=== PATIENT | female | born 1970 | race African-American/Black ===

== ENCOUNTER 2019-03-10 21:46 | Emergency (ER) | payer SELFPAY ==
[~2019-03-10] VITALS: Ht 162.6 cm; Wt 86.0 kg
[2019-03-10] MEDS ORDERED: LOSA100T2 PO (22:35)
[2019-03-10] MEDS ORDERED: AMLO-511 PO (22:35)
[2019-03-10] MEDS ORDERED: PARO20TA24 PO (22:35)
[2019-03-10 22:38] VITALS: BP 136/80
== END 2019-03-10 23:09 | disposition home or self-care (01) ==
LOC: EMS 21:47
DX: R09.89 Other specified symptoms and signs involving the circulatory and respiratory systems (principal); I10 Essential (primary) hypertension; F32.9 Major depressive disorder, single episode, unspecified; Z02.89 Encounter for other administrative examinations; Z98.51 Tubal ligation status; Z88.8 Allergy status to other drugs, medicaments and biological substances

== ENCOUNTER 2023-09-30 06:54 | Emergency (ER) | payer MEDICAID ==
[~2023-09-30] VITALS: Ht 160 cm; Wt 86.0 kg
[~2023-09-30 06:54] MED LIST: AMLO-257 PO; LOSA-420 PO; PARO-38 PO
[2023-09-30] MEDS ORDERED: FOLI-130 PO (06:58)
[2023-09-30] MEDS ORDERED: THIA100T80 PO (06:58)
[2023-09-30] MEDS ORDERED: SULF500T60 PO (06:58)
[2023-09-30] MEDS ORDERED: CALC-789 PO (06:58)
[2023-09-30] MEDS ORDERED: LORA10TA7 PO (06:58)
[2023-09-30] MEDS ORDERED: MULT-662 PO (06:58)
[2023-09-30] MEDS ORDERED: ACETAMINOPHEN 500 MG TABLET PO ONE (07:15)
[2023-09-30] MEDS ORDERED: MAG HYDROX/ALUMINUM HYD/SIMETH 30 ML SUSPENSION UDCUP PO ONE (07:15)
[2023-09-30] MEDS ORDERED: SODIUM CHLORIDE 0.9% 1,000 ML IV ONE (07:15)
[2023-09-30] MEDS ORDERED: FAMOTIDINE 20 MG/2 ML VIAL IVP ONE (07:15)
[2023-09-30] MEDS ORDERED: IOHEXOL 350 MG/ML 100 ML VIAL ONE (07:19)
[2023-09-30] MEDS ORDERED: SODIUM CHLORIDE 0.9% 100 ML ONE (07:19)
[2023-09-30 07:22] LABS: COVID AG,FIA SOURCE NASAL SWAB
[2023-09-30 07:44] LABS: BASOPHILS % (AUTO) 0.5 % (0.0-2.0); EOSINOPHILS % (AUTO) 1.3 % (1.0-6.0); HEMATOCRIT 36.9 % (36-46); HEMOGLOBIN 12.6 g/dL (12.0-16.0); LYMPHOCYTES # (AUTO) 1.4 K/uL (1.0-4.8); LYMPHOCYTES % (AUTO) 23.5 % (22.0-44.0); MEAN CORPUSCULAR HEMOGLOBIN 33.7 pg (26.0-34.0); MEAN CORPUSCULAR VOLUME 99 fL (80-100); MONOCYTES # (AUTO) 0.4 K/uL (0.1-1.0); MONOCYTES % (AUTO) 7.4 % (2.0-9.0); NEUTROPHILS % (AUTO) 67.3 % (40.0-70.0); PLATELET COUNT (AUTO) 277 K/uL (150-450); RED BLOOD CELL COUNT(AUTO) 3.74 MIL/uL (4.00-5.20); RED CELL DISTRIBUTION WIDTH 15.8 % (11.5-14.5)
[2023-09-30 07:54] LABS: APPEARANCE,URINE HAZY (CLEAR); BILIRUBIN,URINE NEGATIVE (NEGATIVE); COLOR,URINE YELLOW (YELLOW); GLUCOSE, URINE (UA) NEGATIVE (NEGATIVE); KETONES,URINE NEGATIVE (NEGATIVE); LEUKOCYTE ESTERASE ,URINE LARGE (NEGATIVE); NITRATE,URINE NEGATIVE (NEGATIVE); OCCULT BLOOD,URINE TRACE (NEGATIVE); PH,URINE 6.5 (5.0-8.0); PROTEIN,URINE 30-70 mg/dL (NEGATIVE); SPECIFIC GRAVITIY, URINE 1.013 (1.003-1.030); UROBILINOGEN,URINE <=1.0 mg/dL (<=1.0)
[2023-09-30 07:54] LABS: ANION GAP 11 mmol/L (8-16); CALCIUM, TOTAL 9.6 mg/dL (8.8-10.5); CARBON DIOXIDE 25 mmol/L (22-29); CHLORIDE 98 mmol/L (98-107); CREATININE 0.77 mg/dL (0.60-1.30); GLOMERULAR FILTR. RATE CALC > 60 mL/min (>60); GLUCOSE,RANDOM 126 mg/dL (70-110); POTASSIUM 3.2 mmol/L (3.5-5.1); SODIUM SERUM 134 mmol/L (136-145); UREA NITROGEN, BLOOD 5 mg/dL (7-18)
[2023-09-30 07:58] LABS: SARS-COV2 (COVID) ANTIGEN,FIA Negative (Negative)
[2023-09-30 07:59] LABS: INFLUENZA TYPE A NEGATIVE FOR TYPE A (NEGATIVE); INFLUENZA TYPE B NEGATIVE FOR TYPE B (NEGATIVE)
[2023-09-30 07:59] LABS: ALANINE AMINOTRANSFERASE 35 U/L (12-78); ALBUMIN 3.9 g/dL (3.4-5.0); ALKALINE PHOSPHATASE 106 U/L (46-116); ASPARTATE AMINOTRANSFERASE 28 U/L (15-37); BILIRUBIN,TOTAL 0.7 mg/dL (0.1-1.0); LIPASE 17 U/L (16-77); TOTAL PROTEIN, SERUM 8.2 g/dL (6.4-8.2)
[2023-09-30 08:00] LABS: TROPONIN I-HIGH SENSITIVITY 5 ng/L (<51)
[2023-09-30 08:09] LABS: RBC,URINE 0-2 /HPF (0-2)
[2023-09-30 08:10] LABS: BACTERIA,URINE Few /HPF (None Seen); SQUAMOUS EPITHELIAL CELL,UR Few /LPF (None Seen)
[2023-09-30 09:30] VITALS: TEMP 98.5
[2023-09-30] MEDS ORDERED: CEPH-558 PO (10:13)
[2023-09-30] MEDS ORDERED: CEPHALEXIN MONOHYDRATE 500 MG CAPSULE PO ONE (10:15)
[2023-09-30 10:45] VITALS: BP 155/95; PULSE 70; RESP 14
== END 2023-09-30 10:57 | disposition home or self-care (01) ==
LOC: EMS 06:56
DX: N39.0 Urinary tract infection, site not specified (principal); R10.33 Periumbilical pain; F32.A Depression, unspecified; I10 Essential (primary) hypertension; Z98.51 Tubal ligation status; Z88.8 Allergy status to other drugs, medicaments and biological substances; Z20.822 Contact with and (suspected) exposure to COVID-19
CPT/HCPCS: 99285; 74177; 96374; 96361; 87426; 80053; 81001; 83690; 84484; 84703; 85025; 87804; 36415; 87086; 87186; 93005; J3490; Q9967; J7030; J7050